=== PATIENT | male | born 1990 | race Hispanic/Latino ===

== ENCOUNTER 2017-03-25 14:14 | Inpatient (IN) | payer OTHER, SELFPAY ==
[2017-03-25] MEDS ORDERED: Dextrose 50% Abboject 50 ML SYRINGE SLOW IVP PRN (15:15)
[2017-03-25] MEDS ORDERED: Dextrose 5% in Water 1,000 ML IV PRN (15:15)
[2017-03-25] MEDS ORDERED: Ondansetron HCl/PF 4 MG/2 ML Vial ONE (15:16)
[2017-03-25] MEDS ORDERED: Adacel (T-DAP) 0.5 ML VIAL ONE (15:16)
[2017-03-25] MEDS ORDERED: Promethazine HCl 25 MG/ML VIAL IM PRN (15:19)
[2017-03-25] MEDS ORDERED: diphenhydrAMINE 50 MG/ML VIAL IM PRN (15:19)
[2017-03-25] MEDS ORDERED: diphenhydrAMINE 50 MG/ML VIAL IVP PRN (15:19)
[2017-03-25] MEDS ORDERED: Naloxone HCl 0.4 mg/ml Vial IV PRN (15:19)
[2017-03-25] MEDS ORDERED: HYDROmorphone 10 mg/100 ml CADD IVPB PRN (15:19)
[2017-03-25] MEDS ORDERED: Ondansetron HCl/PF 4 MG/2 ML Vial IVP PRN (15:19)
[2017-03-25] MEDS ORDERED: diphenhydrAMINE 25 MG CAP PO PRN (15:19)
[2017-03-25] MEDS ORDERED: Communication Order-Pharmacy FS SCH (15:30)
[2017-03-25] MEDS ORDERED: Fentanyl 100 MCG/2 ML VIAL ONE ×2 (15:42→16:54)
[2017-03-25] MEDS ORDERED: Vecuronium 10 MG VIAL ONE (16:05)
[2017-03-25] MEDS ORDERED: Propofol 200 MG/20 ML VIAL ONE (16:05)
[2017-03-25] MEDS ORDERED: Calcium Chloride 1 GM/10 ML Abboject SYRINGE ONE (16:05)
[2017-03-25] MEDS ORDERED: PHENYLEPHRINE-NS 100 MCG/ML 10 ML SYRINGE ONE (16:05)
[2017-03-25] MEDS ORDERED: Lidocaine 1% PF 5 ML VIAL ONE (16:05)
[2017-03-25] MEDS ORDERED: Succinylcholine Chloride 20 MG/ML 10 ml SYRINGE FS ONE (16:05)
[2017-03-25 16:07] LABS: Hematocrit 36.2 % (42.0-52.0)
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
--- NOTE | 2017-03-25 16:44 | RAD ---
RETROGRADE URETHROGRAM: Date: 03/25/17 INDICATION: Trauma with pelvic fracture. Blood from penile meatus. FINDINGS: A retrograde urethrogram was performed by injecting water soluble contrast retrograde at the penile m eatus. Penile urethra opacifies and appears unremarkable. There is abnormality at the diaphragmatic urethra with extravasation and contrast tracking retrograde along the penile urethra. Prostatic urethra appears intact. There is diffuse extravasation at the junction of the prostatic urethra and the bladder. IMPRESSION: Evidence of urethral injury involving the membranous urethra and there is injury at the junction of t he prostatic urethra with the bladder. POS: [facility]
[2017-03-25] MEDS ORDERED: CEFAZOLIN/Water 2 GM/20 ML SYRINGE ONE ×2 (16:54→19:08)
[2017-03-25] MEDS ORDERED: Midazolam HCl 2 mg/2 ml Vial ONE ×3 (16:54→23:03)
--- NOTE | 2017-03-25 19:13 | CT ---
CT PELVIS WITHOUT CONTRAST CYSTOGRAM: History: Injury. Comparison: Retrograde urethrogram same day. Technique: Non-intravenous contrast images of the pelvis were performed prior to the contrast install ation of 300 ml retrograde into the bladder via Stuart catheter. Images were obtained after the instal lation of contrast into the bladder. Coronal reformats available for review. FINDINGS: Bones: There is diastasis of the pubic symphysis with vertical off set with the right pubic symphysis higher than the left. There are fractures through the right ileum, the SI joint, with a chip fractur e of the sacrum of S2. Mild widening of the left SI joint. There is a nondisplaced fracture of the le ft acetabulum. There is a large hole at the proximal urethra at the ureterovesicular junction along the anterior and infralateral aspect. There is also a defect of the memerous portion of the urethra Hip joints are in normal alignment. There is contrast extravasation to the intraperitoneal and extraperitoneal cavities as well as in the superficial soft tissues superficial to the rectum muscles and along the bilateral aviation warfare systems operator muscles extending into the adductor musculature. IMPRESSION: 1. Combined right lateral compression type III injury with associated vertical shear of the pelvis. 2. Large defect of the proximal urethra at the urethral sphincter along the anterior and lateral aspe ct from approximately 12 o'clock to 3 o'clock with another associated injury of the memberous urethra with associated intraperitoneal and extraperitoneal urine extravasation. POS: [facility]
--- NOTE | 2017-03-25 19:14 | ULT ---
TESTICULAR ULTRASOUND WITH DOPPLER: History: Evaluate for blood flow to the testicles. Comparison: None. FINDINGS: There is blood flow documented within both testicles. Severe scrotal edema. Right testicle measures 3 .9 x 2.5 x 2.7 cm. Left testicle measure 3.1 x 3.4 x 2.5 cm. IMPRESSION: Positive blood flow to both testicles. POS: [facility]
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
[2017-03-25] MEDS ORDERED: Fentanyl 250 MCG/5 ML VIAL ONE (19:27)
[2017-03-25] MEDS: Sodium Chloride 0.9% 1,000 ML IV SCH ×2 (19:55→23:46)
[2017-03-25] MEDS: Ketorolac Tromethamine 30 MG/ML VIAL IVP SCH ×2 (19:56→23:32)
[2017-03-25] MEDS ORDERED: Rocuronium Bromide 50 MG/5 ML VIAL ONE ×4 (23:03→23:06)
[2017-03-25] MEDS ORDERED: Fentanyl 20 MCG/ML 250 ML ONE (23:43)
[2017-03-25] MEDS ORDERED: Sedation Protocol FS ONE (23:44)
[2017-03-25] MEDS ORDERED: Sedation Protocol FS SCH (23:44)
[2017-03-25] MEDS ORDERED: Fentanyl 20 MCG/ML 250 ML IVPB SCH (23:47)
[2017-03-25] MEDS ORDERED: DISCONTINUE PREVIOUS NARCOTIC PAIN MEDICATIONS AND BENZODIAZEPINES FS SCH (23:47)
[2017-03-25] MEDS ORDERED: Propofol 1,000 MG/100 ML VIAL IV PRN (23:47)
[2017-03-25] MEDS ORDERED: Lorazepam 2 MG/ML VIAL SLOW IVP PRN (23:47)
[2017-03-25] MEDS ORDERED: Morphine 2 mg/2ml in 0.9% NaCl PF SYRINGE IVP PRN (23:48)
[2017-03-26] MEDS ORDERED: CEFAZOLIN/Water 2 GM/20 ML SYRINGE SLOW IVP SCH (00:01)
[2017-03-26 00:06] LABS: Oxyhemoglobin 97.7 % (94.0-97.0); Sodium 137 mmol/L (135-148)
[2017-03-26 00:17] LABS: #Lymphocytes 0.8 thou/uL (1.20-3.40); #Monocytes 0.5 thou/uL (0.11-0.59); #Neutrophils 5.5 thou/uL (1.40-6.50); %Basophils 0.1 % (0.0-1.0); %Eosinophils 0.1 % (0.0-10.0); %Monocytes 7.7 % (0.0-10.0); Hematocrit 27.8 % (42.0-52.0); Mean Platelet Volume 8.1 fL (7.4-10.4); Red Blood Cell (RBC) Count 3.03 mill/uL (4.70-6.10); White Blood Cell (WBC) Count 6.9 thou/uL (4.8-10.8)
[2017-03-26 00:36] LABS: Anion Gap 9 mmol/L (10-20); BUN (Urea Nitrogen) 20 mg/dL (8.9-20.6); Calc. Creatinine Clearance 0 mL/min (70-130); Calcium 7.7 mg/dL (7.8-10.44); Carbon Dioxide 21 mmol/L (22-29); Chloride 109 mmol/L (98-107); Estimated GFR-MDRD 54; Magnesium 1.2 mg/dL (1.6-2.6); Phosphorus 3.9 mg/dL (2.3-4.7)
[2017-03-26 00:42] LABS: Mechanical Tidal Volume 600 ml; Mode SIMV; Pressure Support 10 cmH2O; Vent YES
[2017-03-26 00:53] VITALS: BMI 28.9
[2017-03-26] MEDS ORDERED: Magnesium Sulfate 4 GM in Sodium Chloride 0.9% 250 ML 250 ML IVPB SCH (01:00)
[2017-03-26] MEDS: CEFAZOLIN/Water 2 GM/20 ML SYRINGE SLOW IVP SCH ×3 (01:41→16:52)
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
[2017-03-26 04:21] LABS: #Lymphocytes 1.4 thou/uL (1.20-3.40); #Monocytes 0.7 thou/uL (0.11-0.59); #Neutrophils 4.6 thou/uL (1.40-6.50); %Basophils 0.1 % (0.0-1.0); %Eosinophils 0.1 % (0.0-10.0); %Lymphocytes 20.6 % (21.0-51.0); %Monocytes 10.3 % (0.0-10.0); Hematocrit 25.1 % (42.0-52.0); Mean Platelet Volume 8.5 fL (7.4-10.4); Red Blood Cell (RBC) Count 2.73 mill/uL (4.70-6.10); White Blood Cell (WBC) Count 6.7 thou/uL (4.8-10.8)
[2017-03-26 04:25] LABS: PTT 29.7 SEC (22.9-36.1); Prothrombin Time 16.2 SEC (12.0-14.7)
[2017-03-26 04:33] LABS: Anion Gap 7 mmol/L (10-20); BUN (Urea Nitrogen) 21 mg/dL (8.9-20.6); Calc. Creatinine Clearance 86 mL/min (70-130); Calcium 7.4 mg/dL (7.8-10.44); Carbon Dioxide 23 mmol/L (22-29); Chloride 109 mmol/L (98-107); Estimated GFR-MDRD 55
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
[2017-03-26] MEDS: Ketorolac Tromethamine 30 MG/ML VIAL IVP SCH ×2 (05:45→12:02)
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
--- NOTE | 2017-03-26 07:30 | RAD ---
INTRAOPERATIVE FLUOROSCOPIC IMAGES OF PELVIS: Date: 03/25/17 HISTORY: Internal fixation/pelvic pain. FINDINGS: Six intraoperative fluoroscopic images of the pelvis are obtained. There is a single long screw trans fixing the bilateral sacroiliac joints with an additional screw transfixing the right sacroiliac join t. There is a malleable plate and multiple screws transfixing the pubic bone and each superior pubic ramus. Skin clips overlie the midline, as well as drainage catheter. Stuart catheter is noted in place . IMPRESSION: Internal fixation of fracture of the right sacrum and right sacroiliac joint, as well as realignment and internal fixation of the pubic bones. No hardware complication is seen. POS: [facility]
--- NOTE | 2017-03-26 07:43 | RAD ---
PORTABLE CHEST XRAY: DATE: 03/25/17. HISTORY: Intubated. COMPARISON: None available. FINDINGS: Endotracheal tube is noted in place with tip overlying the T3-4 level above the level of the hernando. Cardiac silhouette and pulmonary vasculature are within normal limits. Lungs are clear. There is a metallic density overlying the right axillary region which could be related to overlying artifact or metallic foreign body. This cannot be further evaluated on this exam. Osseous structures appear int act. IMPRESSION: 1. Endotracheal tube noted in place overlying the T3-4 level and above the level of the hernando. 2. Lungs are clear. 3. Metallic density overlying the right axillary region which could be related to overlying artifact , but metallic foreign body cannot be excluded on this exam. POS: [facility]
[2017-03-26 08:09] LABS: Oxyhemoglobin 97.3 % (94.0-97.0); Sodium 136 mmol/L (135-148)
[2017-03-26 08:13] LABS: Mechanical Tidal Volume 600 ml; Modified Allen's Test NOT DONE; Vent YES
[2017-03-26 08:14] LABS: Mode SIMV/PSV; Pressure Support 10 cmH2O
[2017-03-26] MEDS ORDERED: Sodium Bicarbonate 150 MEQ in Dextrose 5% in Water 1,000 ML IV SCH ×2 (08:15)
[2017-03-26] MEDS ORDERED: Promethazine HCl 25 MG/ML VIAL IM PRN (09:11)
[2017-03-26] MEDS ORDERED: diphenhydrAMINE 25 MG CAP PO PRN (09:11)
[2017-03-26] MEDS ORDERED: diphenhydrAMINE 50 MG/ML VIAL IM PRN (09:11)
[2017-03-26] MEDS ORDERED: diphenhydrAMINE 50 MG/ML VIAL IVP PRN (09:11)
[2017-03-26] MEDS ORDERED: Naloxone HCl 0.4 mg/ml Vial IV PRN (09:11)
[2017-03-26] MEDS ORDERED: Ondansetron HCl/PF 4 MG/2 ML Vial IVP PRN (09:11)
[2017-03-26] MEDS ORDERED: HYDROmorphone 10 mg/100 ml CADD IVPB PRN (09:11)
[2017-03-26] MEDS ORDERED: Communication Order-Pharmacy FS SCH (09:15)
[2017-03-26 10:06] LABS: Hematocrit 23.9 % (42.0-52.0)
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
--- NOTE | 2017-03-26 17:13 | PRG ---
DATE OF SERVICE: 03/26/2017 SUBJECTIVE: Mr. Tracy is sedated and seen on mechanical ventilatory support this morning. He moved all extremities and follows commands with a [place] coma scale of 11t. Urinary output though grossly bloody has been in excess of 30 mL per hour. OBJECTIVE: VITAL SIGNS: Today includes blood pressure 150/75, pulse is 105, respiratory rate is 22. Maximum temperature over the last 24 hours is 100.3 degrees Fahrenheit. Oxygen saturation 100% on FIO2 of 28%. HEENT: Reveals normocephalic and atraumatic. Pupils are equal, round, and reactive to light and accommodation. HEART: Reveals regular rate with mild sinus tachycardia, no murmurs or gallops auscultated. LUNGS: Clear to auscultation bilaterally. Breathing is regular and unlabored. ABDOMEN: Soft with incisional tenderness to palpation. Yves-Mckeon drain returns serosanguineous fluid with smell of urine. GENITOURINARY: Stuart catheter remains in place with gross hematuria present. Scrotum is edematous and tender with even slight manipulation. There is ecchymosis of the scrotum and perineum present. There is no subcutaneous emphysema present. NEUROLOGIC: Reveals no focal deficits present. EXTREMITIES: Reveals 2+ radial and pedal pulses bilaterally. PERTINENT LABORATORY FINDINGS: Includes a CBC with 6700 white blood cells, hemoglobin 8.6, hematocrit is 25.1, platelet count is 138,000. Metabolic profile: Sodium 134, potassium is 4.5, chloride is 109, bicarbonate 23, BUN 21 , creatinine is 1.52 and glucose 161. IMPRESSION: 1. Acute posttraumatic respiratory failure, improving. 2. Status post crush injury to right pelvis, status post open reduction and internal fixation of the pubic symphysis, diastatic fracture as well as right SI screws. 3. Status post laparotomy and drainage of bladder neck urethral injury. 4. Acute blood loss anemia. 5. Acute kidney injury likely secondary to acute tubular necrosis. PLAN: 1. The patient is weaned and extubated accordingly. 2. We will initiate pulmonary toilet. 3. Continue to monitor the patient for hemostasis using serial hemoglobin as end-point. 4. Continue with nonpharmacological VTE prophylaxis until active bleeding has been excluded. There is no need for blood transfusion at this time. Above findings and plan discussed with the patient and his at bedside. They both indicated understanding of information given. Total critical care time is 45 minutes. MTDD
[2017-03-26] MEDS: Sodium Chloride 0.9% 1,000 ML IV SCH (19:56)
[2017-03-27] MEDS: CEFAZOLIN/Water 2 GM/20 ML SYRINGE SLOW IVP SCH ×3 (00:45→15:53)
[2017-03-27 05:48] LABS: Anion Gap 6 mmol/L (10-20); BUN (Urea Nitrogen) 17 mg/dL (8.9-20.6); Calc. Creatinine Clearance 116 mL/min (70-130); Calcium 7.4 mg/dL (7.8-10.44); Carbon Dioxide 28 mmol/L (22-29); Chloride 105 mmol/L (98-107); Estimated GFR-MDRD 78; Magnesium 2.4 mg/dL (1.6-2.6); Phosphorus 1.9 mg/dL (2.3-4.7)
[2017-03-27 06:05] LABS: Band 3 % (5-11); Hematocrit 20.1 % (42.0-52.0); Mean Platelet Volume 9.2 fL (7.4-10.4); Neutrophil 66 % (42-75); Red Blood Cell (RBC) Count 2.16 mill/uL (4.70-6.10); White Blood Cell (WBC) Count 5.2 thou/uL (4.8-10.8)
[2017-03-27] MEDS ORDERED: Potassium Phosphate 30 MMOL in Sodium Chloride 0.9% 500 ML IVPB SCH (07:30)
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
[2017-03-27] MEDS ORDERED: Enoxaparin Sodium 30 MG/0.3 ML SYRINGE SC SCH (21:00)
[2017-03-27] MEDS ORDERED: CEFAZOLIN 1 GM in Syringe 10 ML IVPB SCH (23:59)
[2017-03-28] MEDS: CEFAZOLIN/Water 2 GM/20 ML SYRINGE SLOW IVP SCH (00:20)
[2017-03-28 05:53] LABS: #Lymphocytes 1.3 thou/uL (1.20-3.40); #Monocytes 0.5 thou/uL (0.11-0.59); #Neutrophils 4.1 thou/uL (1.40-6.50); %Basophils 0.2 % (0.0-1.0); %Eosinophils 0.4 % (0.0-10.0); %Lymphocytes 21.6 % (21.0-51.0); %Monocytes 8.5 % (0.0-10.0); Hematocrit 23.1 % (42.0-52.0); Mean Platelet Volume 8.6 fL (7.4-10.4); White Blood Cell (WBC) Count 5.9 thou/uL (4.8-10.8)
[2017-03-28 06:11] LABS: Anion Gap 8 mmol/L (10-20); BUN (Urea Nitrogen) 10 mg/dL (8.9-20.6); Calc. Creatinine Clearance 112 mL/min (70-130); Calcium 8.3 mg/dL (7.8-10.44); Carbon Dioxide 26 mmol/L (22-29); Chloride 105 mmol/L (98-107); Estimated GFR-MDRD 75; Phosphorus 2.3 mg/dL (2.3-4.7)
[2017-03-28] MEDS ORDERED: CEFAZOLIN 1 GM in Syringe 10 ML IVPB SCH (07:00)
[2017-03-28] MEDS: Enoxaparin Sodium 30 MG/0.3 ML SYRINGE SC SCH ×2 (09:01→21:34)
[2017-03-28] MEDS: CEFAZOLIN 1 GM in Syringe 10 ML IVPB SCH ×3 (09:01→23:23)
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
[2017-03-28] MEDS: Senokot S 8.6-50 MG TAB PO SCH (21:34)
[2017-03-29] MEDS ORDERED: Bisacodyl 10 MG SUPP PR PRN (08:17)
[2017-03-29] MEDS: CEFAZOLIN 1 GM in Syringe 10 ML IVPB SCH ×2 (09:46→18:21)
[2017-03-29] MEDS: Senokot S 8.6-50 MG TAB PO SCH (09:49)
[2017-03-29] MEDS: Polyethylene Glycol 3350 17 GM Packet PO SCH (09:49)
[2017-03-29] MEDS: Ascorbic Acid 500 mg Chewable Tablet PO SCH (09:50)
[2017-03-29] MEDS: Enoxaparin Sodium 30 MG/0.3 ML SYRINGE SC SCH (09:50)
[2017-03-29] MEDS: Ferrous Sulfate 325 MG TAB PO SCH (09:50)
[2017-03-29] MEDS ORDERED: Bupivacaine PF 0.5% 30 ML VIAL ONE (12:31)
[2017-03-29] MEDS ORDERED: Fentanyl 100 MCG/2 ML VIAL ONE (13:24)
[2017-03-29] MEDS ORDERED: Midazolam HCl 2 mg/2 ml Vial ONE (13:25)
[2017-03-29 13:47] LABS: Oxyhemoglobin 97.6 % (94.0-97.0); Sodium 138 mmol/L (135-148)
[2017-03-29 13:48] LABS: Oxyhemoglobin 97.4 % (94.0-97.0); Sodium 137 mmol/L (135-148)
[2017-03-29] MEDS ORDERED: Promethazine HCl 25 MG/ML VIAL IM PRN (14:28)
[2017-03-29] MEDS ORDERED: Promethazine HCl 25 MG/ML VIAL SLOW IVP PRN (14:28)
[2017-03-29] MEDS ORDERED: Ondansetron HCl/PF 4 MG/2 ML Vial IVP PRN (14:28)
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
[2017-03-29] MEDS ORDERED: Propofol 200 MG/20 ML VIAL ONE (16:20)
[2017-03-29] MEDS ORDERED: Lidocaine 1% PF 5 ML VIAL ONE (16:20)
[2017-03-29] MEDS ORDERED: Ondansetron HCl/PF 4 MG/2 ML Vial ONE (16:20)
--- NOTE | 2017-03-29 16:36 | RAD ---
THREE INTRAOPERATIVE IMAGES OF THE RIGHT ANKLE: Date: 03-29-17 Comparison: None. History: Trauma. FINDINGS: Three intraoperative images are provided demonstrating a screw and plate fixation of the distal fibul a. IMPRESSION: Intraoperative imaging as above. POS: [facility]
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
[2017-03-29] MEDS ORDERED: Acetaminophen 500 MG TAB PO PRN (17:51)
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
[2017-03-30] MEDS: Polyethylene Glycol 3350 17 GM Packet PO SCH (09:55)
[2017-03-30] MEDS: Enoxaparin Sodium 30 MG/0.3 ML SYRINGE SC SCH ×3 (09:55→21:22)
[2017-03-30] MEDS: Ascorbic Acid 500 mg Chewable Tablet PO SCH ×3 (09:55→21:24)
[2017-03-30] MEDS: Ferrous Sulfate 325 MG TAB PO SCH ×3 (09:55→21:23)
[2017-03-30] MEDS: Senokot S 8.6-50 MG TAB PO SCH ×3 (09:56→21:24)
[2017-03-30] MEDS: CEFAZOLIN 1 GM in Syringe 10 ML IVPB SCH (10:41)
--- NOTE | 2017-03-30 12:17 | PRG-2 ---
DATE OF SERVICE: 03/30/2017. ATTENDING PHYSICIAN: Dr. Preston Brown. SUBJECTIVE: Mr. Tracy is a 26-year-old male status post pelvic fracture. He is postoperative day #1 for ORIF of right distal fibula. He has no complaints this morning. States that his pain is wel l controlled. He is tolerating his diet and having normal bowel function; however, he has had fever, last night T-max was 102.1. The patient has not been using incentive spirometer very often, and he is unable to take very deep breaths and has a very weak cough. OBJECTIVE: VITAL SIGNS: Temperature 99.3, pulse 97, respiratory rate 16, O2 sat 97% on room air, blood pressure 108/63. GENERAL: Well-developed, well-nourished male in no acute distress. HEENT: Normocephalic, atraumatic. CARDIOVASCULAR: Regular rate and rhythm. PULMONARY: Clear to auscultation bilaterally. Normal respiratory effort. ABDOMEN: Soft, nontender, nondistended. EXTREMITIES: Neurovascularly intact. Full range of motion. ASSESSMENT: 1. A 26-year-old man status post crush injury to pelvis. 2. Status post open reduction internal fixation of pelvis. 3. Status post open reduction internal fixation of right distal fibula. 4. Acute blood loss anemia, resolved. 5. Acute kidney injury, resolved. PLAN: Continue p.o. pain medications as well as Lovenox for deep venous thrombosis, prophylaxis. Co ntinue mobilization with physical therapy and occupational therapy. We will continue Stuart until karen ared by Urology. It is anticipated that the patient will go home with Stuart and it will need to be s een outpatient by Urology. Strongly encourage the patient to increase amount of incentive spirometer use and work on strengthening his cough, we think this is likely because of his fever overnight. e patient agreed to this plan. Assessment and plan discussed with Dr. Preston Brown this morning on rounds.
--- NOTE | 2017-03-30 14:44 | PRG ---
DATE OF SERVICE: 03/30/2017 SUBJECTIVE: The patient did well overnight despite having a temperature after return from his surger y for his right lower extremity. He has no specific complaints regarding his perineum or scrotum. OBJECTIVE: VITAL SIGNS: He had temperature of 102, but it has come back down and most recently has been 99.8, h is blood pressure has been stable, heart rate in the 90s and he is satting 99% on room air. He does sound a bit congested. ABDOMEN: Soft, nondistended, appropriately tender. The dressing was removed and the incision is karen an, dry, and intact with regla. Dressing was changed around the IRVING drain, which was old encrusted, but the skin itself was normal and without concern for infection. The IRVING drain was placed back to s [facility] [place] from gravity and the Stuart catheter was cleaned from some of the crusted blood and draining ye llow urine with output of 4300 in the last 24 hours and only 15 from the Yves-Mckeon. : His scrotum is less swollen than before, but partially compressed by his legs, so I elevated thi s with a washcloth. ASSESSMENT: A 26-year-old male status post pelvic crush injury with significant urethral injury. Hi s drain has minimal output now, but I would keep it in 1 more day on suction given the recent tempera ture spike and keep the Stuart catheter to gravity.
--- NOTE | 2017-03-30 15:46 | RAD ---
PORTABLE CHEST 1 VIEW: Date: 03/30/17 Time: 1440 hours HISTORY: Fever, concern for pneumonia. FINDINGS: Comparison made with exam of 03/25/17. There has been interval removal of the endotracheal tube. The heart size is normal. There are mild pa tchy infiltrates in the right mid lung. No pneumothoraces or pleural effusions are seen. IMPRESSION: Findings suspicious for pneumonia. POS: [facility]
[2017-03-30] MEDS: cefTRIAXone\\ROCEPHIN 2 GM in Sodium Chloride 0.9% 100 ML IVPB SCH (18:00)
[2017-03-30] MEDS: traMADol HCl 50 MG TAB PO PRN (21:21)
[2017-03-31 05:37] LABS: #Eosinphils 0.1 thou/uL (0.0-0.7); #Lymphocytes 1.2 thou/uL (1.20-3.40); #Monocytes 0.8 thou/uL (0.11-0.59); #Neutrophils 5.6 thou/uL (1.40-6.50); %Basophils 0.4 % (0.0-1.0); %Eosinophils 1.1 % (0.0-10.0); %Lymphocytes 15.7 % (21.0-51.0); %Monocytes 9.9 % (0.0-10.0); Hematocrit 25.5 % (42.0-52.0); Red Blood Cell (RBC) Count 2.75 mill/uL (4.70-6.10); White Blood Cell (WBC) Count 7.7 thou/uL (4.8-10.8)
[2017-03-31 05:42] LABS: Anion Gap 9 mmol/L (10-20); BUN (Urea Nitrogen) 16 mg/dL (8.9-20.6); Calc. Creatinine Clearance 130 mL/min (70-130); Calcium 8.8 mg/dL (7.8-10.44); Carbon Dioxide 27 mmol/L (22-29); Chloride 102 mmol/L (98-107); Estimated GFR-MDRD 89; Magnesium 2.1 mg/dL (1.6-2.6); Phosphorus 3.4 mg/dL (2.3-4.7)
[2017-03-31 06:42] LABS: Mode OR ABG; Vent YES
[2017-03-31 06:42] LABS: Mode OR ABG; Vent YES
[2017-03-31] MEDS: Polyethylene Glycol 3350 17 GM Packet PO SCH (08:33)
[2017-03-31] MEDS: Senokot S 8.6-50 MG TAB PO SCH ×2 (08:33→20:45)
[2017-03-31] MEDS: Ferrous Sulfate 325 MG TAB PO SCH ×2 (08:33→20:45)
[2017-03-31] MEDS: Ascorbic Acid 500 mg Chewable Tablet PO SCH ×2 (08:33→20:45)
[2017-03-31] MEDS: Enoxaparin Sodium 30 MG/0.3 ML SYRINGE SC SCH ×2 (08:33→20:46)
--- NOTE | 2017-03-31 10:16 | PRG-2 ---
DATE OF SERVICE: 03/31/2017 ATTENDING: Trauma surgeon, Dr. Ivan Brown. SUBJECTIVE: Mr. Ramez Tracy is a 26-year-old man status post pelvic fracture on hospital day #6. He is postoperative day #2 for ORIF of right distal fibula. He has no complaints this morning, stat es that he is breathing much better and states his pain is well controlled. He has continued to tole rate his normal diet and have normal bowel function. Chest x-ray was performed yesterday and showed a possible pneumonia, which would be consistent with his lung exam yesterday and the temperature that he had. The patient was started on Rocephin yesterday and encouraged strongly to work on incentive spirometry yesterday, which he did. OBJECTIVE: VITAL SIGNS: Temperature 100.2, pulse 97, respiratory rate 16, O2 sat 97% on room air, blood pressur e 128/75. GENERAL: Well-developed, well-nourished man, in no acute distress. HEENT: Normocephalic, atraumatic. CARDIOVASCULAR: Regular rate and rhythm, no murmurs. PULMONARY: Some rhonchi heard on the right, otherwise clear. Normal respiratory effort. ABDOMEN: Soft, nontender, nondistended. EXTREMITIES: Neurovascularly intact. ASSESSMENT: A 26-year-old man status post crush injury to pelvis. 1. Status post open reduction internal fixation of pelvis. 2. Status post open reduction internal fixation of the right distal fibula. 3. Acute blood loss anemia, resolved. 4. Acute kidney injury, resolved. PLAN: We will continue Rocephin for presumed pneumonia. We will continue Lovenox for deep venous th rombosis prophylaxis. Continue incentive spirometry today. The patient has shown much improvement s ivonne yesterday's performance on incentive spirometry. We will start a q.8 hour breathing treatments today and encouraged the patient to continue working with PT and OT. Assessment and plan was discussed with attending, trauma surgeon, Dr. Preston Brown this morning on r ounds.
[2017-03-31] MEDS: cefTRIAXone\\ROCEPHIN 2 GM in Sodium Chloride 0.9% 100 ML IVPB SCH (16:24)
[2017-03-31] MEDS: traMADol HCl 50 MG TAB PO PRN (20:50)
[2017-04-01] MEDS: Ascorbic Acid 500 mg Chewable Tablet PO SCH ×2 (09:21→20:56)
[2017-04-01] MEDS: Ferrous Sulfate 325 MG TAB PO SCH ×2 (09:22→20:56)
[2017-04-01] MEDS: Enoxaparin Sodium 30 MG/0.3 ML SYRINGE SC SCH ×2 (09:22→20:57)
[2017-04-01] MEDS: Bisacodyl 10 MG SUPP PR SCH (09:22)
[2017-04-01] MEDS: Senokot S 8.6-50 MG TAB PO SCH ×2 (09:23→20:57)
[2017-04-01] MEDS: Polyethylene Glycol 3350 17 GM Packet PO SCH (09:23)
--- NOTE | 2017-04-01 11:12 | PRG-2 ---
DATE OF SERVICE: 04/01/2017 ATTENDING PHYSICIAN: Dr. Preston Brown. SUBJECTIVE: Mr. Ramez Tracy is a 26-year-old man status post pelvic fracture who is on hospital d ay #7. He is postoperative day #3 for ORIF of right distal fibula. He has no complaints this mornin g. He states his pain is well controlled and that he has continued to breathe well. He is toleratin g his normal diet and having normal bowel function. He got up to work with PT yesterday. He did not have any pain, but he did get a little dizzy. He has continued to work on incentive spirometry. OBJECTIVE: VITAL SIGNS: Temperature 98.5, pulse 111, respiratory rate 20, O2 saturation 98% and blood pressure 134/76. GENERAL: A well-developed, well-nourished man in no acute distress. HEENT: Normocephalic and atraumatic. CARDIOVASCULAR: Regular rate and rhythm. No murmurs. PULMONARY: Minimal rhonchi heard on the right lung, otherwise clear. Normal respiratory effort. No distress. ABDOMEN: Soft, nontender and nondistended. EXTREMITIES: Neurovascularly intact. ASSESSMENT: A 26-year-old man; 1. Status post crush injury to the pelvis. 2. Status post open reduction and internal fixation of the pelvis. 3. Status postop open reduction and internal fixation of the right distal fibula. 4. Acute blood loss anemia, resolved. 5. Acute kidney injury, resolved. PLAN: We will switch to p.o. antibiotics today for pneumonia treatment. We will continue DVT prophy laxis with Lovenox. Continue incentive spirometry and continue having the patient work with PT, OT a s the patient will have to be discharged home because he does not have insurance and his case did not qualify for worker's compensation. Assessment and plan discussed with attending, trauma surgeon, Dr. Preston Brown, this morning on [facility] [place].
--- NOTE | 2017-04-01 13:10 | PRG ---
DATE OF SERVICE: 04/01/2017 The patient did well overnight and has no complaints. He is doing better on his incentive spirometer. His vitals have been stable, but his heart rate is back up into the 100s instead of the 90s. T-max 100.8. He has had more than 2.5 liters from the Stuart and it is listed that he had more than 200 from the IRVING drain; however, when I saw him yesterday morning there was approximately 200 more that was actually added onto the prior 24 hours, so in speaking with the patient and looking at the records, it looks like he has really had less than 30 mL from the drain once it was put back to gravity. His scrotum is now of normal size with some residual ecchymosis and appropriate tenderness, but otherwise without concerns. The IRVING drain has serosanguineous fluid of approximately 5 mL in it. His laboratory values reveal a normal white count. It does look like he has been transfused and his H&H did go up. His creatinine is low and normal, ruling out a concern for significant reabsorption of urine. In assessment we have a 26-year-old male status post pelvic crush injury with multiple pelvic fractures, right lower extremity fracture as well as a significant urethral injury with a probable complete membranous disruption status post exploratory laparotomy and drain placement with an indwelling Stuart and a Yves-Mckeon drain. Weighing the pros and cons of leaving the drain with respect to both infection, colonization and infecting his hardware, I opted to put the drain on suction during the exam at bedside today and monitored ; no significant amount of drainage was returned with this. So at this point I cut the suture and removed the Yevs-Mckeon drain in its entirety. The patient tolerated the procedure well. A dressing was put over the wound itself. Any further antibiotics he would need at this time will be ordered and given through the Trauma and Orthopedic Services given his drain is now out. I' ll continue to monitor with the indwelling Stuart. KRISTIN
--- NOTE | 2017-04-01 14:34 | PRG ---
DATE OF SERVICE: 03/31/2017 SUBJECTIVE: The patient did well overnight and I was anticipating removing his drain this morning given the output had been significantly low; however, after putting it back to suction (based on his temperature spike the night before), it put out 95 (from the prior shift of 15) and then another almost 200mL this morning just before my exam. For the 24-hour period, it appeared as though he had closer to 300 or more after putting it back to suction. He still had more than 2 liters out from the Stuart. He reports no concerns or complaints, but it does look like a chest x-ray was consistent with pneumonia. His vitals have been stable. T-max was 100.2 and pulse in the 90s with stable blood pressure. On exam, the incision was clean, dry and intact with regla. The IRVING drain had no concerns at its entrance portion of the skin. There was serosanguineous fluid in the grenade itself. His Stuart was connected and secured. His testes were having still improved swelling and less tender than prior with improving ecchymosis and hyperemia. ASSESSMENT AND PLAN: A 26-year-old male with pelvic crush injury, multiple pelvic fractures and right lower extremity fracture as well as significant urethral injury, most likely complete disruption status post exploratory laparotomy, drain placement and Stuart placement. The drain increased in its output at this time, so I put it back to gravity and will monitor again. We reviewed in detail my concerns and leaving the drain too long, as it can become colonized and/or just be a source for infection--especially given that he has hardware in his pelvis at this time. So I would really like to get it out sooner than later, but if it is draining a significant amount then it is necessary. So for now, we will leave it another day to gravity and monitor its output before determining the next course. KRISTIN
[2017-04-01] MEDS: traMADol HCl 50 MG TAB PO PRN (20:57)
[2017-04-01] MEDS: Zolpidem Tartrate 5 MG TAB PO PRN (23:44)
[2017-04-02] MEDS: Ferrous Sulfate 325 MG TAB PO SCH ×2 (08:52→21:52)
[2017-04-02] MEDS: Docusate 100 MG CAP PO SCH ×2 (08:53→21:51)
[2017-04-02] MEDS: Oxybutynin ER 5 MG TAB PO SCH (08:53)
[2017-04-02] MEDS: Senokot S 8.6-50 MG TAB PO SCH ×2 (08:53→21:52)
[2017-04-02] MEDS: Polyethylene Glycol 3350 17 GM Packet PO SCH ×2 (08:53)
[2017-04-02] MEDS: Ascorbic Acid 500 mg Chewable Tablet PO SCH ×2 (08:53→21:52)
[2017-04-02] MEDS: Enoxaparin Sodium 30 MG/0.3 ML SYRINGE SC SCH ×2 (08:53→21:52)
--- NOTE | 2017-04-02 08:53 | PRG ---
DATE OF SERVICE: 04/02/2017 Yesterday I removed the drain and the patient has done well. He did have some emesis and that was related to taking some medication to help his bowels, but he reports that he is feeling significantly better now. He did have a bowel movement, including diarrhea. He otherwise had a restless night with pain, generalized and not in one specific area, but medication and the sleeping pill helped him to feel significantly better. Currently, he has no significant pain. PHYSICAL EXAMINATION: VITAL SIGNS: T-max 99.8, heart rate still around 100, blood pressure is stable. He has had 2000 from the Stuart. The drain site has a dry dressing and the Stuart is draining yellow urine. ASSESSMENT AND PLAN: 26 year male status post pelvic crush injury with multiple orthopedic injuries and a severe urethral trauma status post exploratory laparotomy and drain placement with the drain now out and the Stuart draining without difficulty. Antibiotics for his pneumonia per the Trauma Team and at this time no further antibiotics needed from me; however, once he is off antibiotics altogether I may prescribe a prophylactic antibiotic until the catheter comes out and will anticipate changing it at 4 weeks and getting a cystogram and RUG at 6 weeks. These can be arranged as an outpatient. I also started him on oxybutynin to help with bladder spasms, and hopefully decrease any leakage from his injury. I emphasized the need to ensure stool softeners and fiber and not get constipated. KRISTIN
[2017-04-02] MEDS: Bisacodyl 10 MG SUPP PR SCH (08:57)
--- NOTE | 2017-04-02 17:59 | PRG ---
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 The patien t sustained a pelvis fracture, a urethral injury and a right ankle fracture. The patient has undergo ne repair of these and has an indwelling catheter to treat his urethral injury. The patient is worki ng with physical therapy and doing well, progressing. He has been afebrile. He states his pain is c ontrolled. He was tolerating a diet and his bowel function has returned. OBJECTIVE: VITAL SIGNS: This morning temperature is 99.1, heart rate 120, blood pressure 118/75, respirations 1 8, oxygen saturation 97% on room air. LABORATORY DATA: THERE are no labs or radiographs to review this morning. ASSESSMENT AND PLAN: 1. Status post industrial accident. 2. Pelvis fracture. 3. Ankle fracture. 4. Urethral injury. PLAN: Will be to continue supportive care, physical and occupational therapy, urinary Stuart as direc florentin by Urology and await placement decision. The evaluation examination was done with Dr. Brown this morning during rounds.
[2017-04-02] MEDS: Zolpidem Tartrate 5 MG TAB PO PRN (21:52)
[2017-04-02] MEDS: traMADol HCl 50 MG TAB PO PRN (21:54)
[2017-04-03] MEDS: Docusate 100 MG CAP PO SCH ×2 (07:46→20:58)
[2017-04-03] MEDS: Ferrous Sulfate 325 MG TAB PO SCH ×2 (07:46→20:57)
[2017-04-03] MEDS: Senokot S 8.6-50 MG TAB PO SCH ×2 (07:46→20:58)
[2017-04-03] MEDS: Polyethylene Glycol 3350 17 GM Packet PO SCH (07:46)
[2017-04-03] MEDS: Oxybutynin ER 5 MG TAB PO SCH (07:47)
[2017-04-03] MEDS: Enoxaparin Sodium 30 MG/0.3 ML SYRINGE SC SCH ×2 (07:48→20:57)
[2017-04-03] MEDS: Ascorbic Acid 500 mg Chewable Tablet PO SCH ×2 (07:48→20:57)
[2017-04-03] MEDS: Bisacodyl 10 MG SUPP PR SCH (07:48)
--- NOTE | 2017-04-03 20:20 | PRG ---
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 He has undergone surgical repair or intervention of some type for these injuries. The patient currently has been working with physical and occupational therapy. He has bee n slowly progressing utilizing a walker. The patient has an indwelling catheter that will have to re main for several weeks. This morning, he was drawing up to 3000 on his incentive spirometry. He is tolerating a diet and has no complaints. OBJECTIVE: VITAL SIGNS: Temperature is 98.4, heart rate 111, blood pressure 120/76, respirations 22 and oxygen saturation 97% on room air. GENERAL: The patient is resting comfortably in bed. He is alert and oriented x3. Nando coma scal e is 15. HEENT: Unremarkable. LUNGS: Clear to auscultation with good inspiratory and expiratory effort. ABDOMEN: Soft, flat and nontender. EXTREMITIES: Neurovascularly intact x4. LABORATORY AND IMAGING DATA: There are no radiographs or laboratories to review this morning. ASSESSMENT AND PLAN: 1. Status post industrial accident. 2. Pelvis fracture, status post open reduction and internal fixation of same. 3. Ankle fracture, status post open reduction internal fixation of same. 4. Urethral injury being treated with indwelling catheter. Plan will be to continue supportive care, pain management, physical and occupational therapy and disc harge the patient once he is sufficiently ambulatory.
[2017-04-03] MEDS: Zolpidem Tartrate 5 MG TAB PO PRN (20:57)
[2017-04-04] MEDS: Senokot S 8.6-50 MG TAB PO SCH ×2 (09:04→21:23)
[2017-04-04] MEDS: Ascorbic Acid 500 mg Chewable Tablet PO SCH ×2 (09:04→21:23)
[2017-04-04] MEDS: Docusate 100 MG CAP PO SCH ×2 (09:05→21:23)
[2017-04-04] MEDS: Oxybutynin ER 5 MG TAB PO SCH (09:05)
[2017-04-04] MEDS: Polyethylene Glycol 3350 17 GM Packet PO SCH (09:06)
[2017-04-04] MEDS: Enoxaparin Sodium 30 MG/0.3 ML SYRINGE SC SCH ×2 (09:06→21:24)
[2017-04-04] MEDS: Bisacodyl 10 MG SUPP PR SCH (09:06)
[2017-04-04] MEDS: Ferrous Sulfate 325 MG TAB PO SCH ×2 (09:06→21:23)
[2017-04-04] MEDS: Zolpidem Tartrate 5 MG TAB PO PRN (21:23)
--- NOTE | 2017-04-05 00:20 | PRG ---
DATE OF SERVICE: 04/04/2017 SUBJECTIVE: The patient is status post industrial accident, in which he sustained an ankle fracture and a pelvic fracture, both of which have undergone open reduction internal fixation. He has been pr ogressing with physical and occupational therapy. Due to insurance reasons, the patient is unable to be placed in a rehab facility, so we will continue to work with him here. He has been ambulating an d being able to place himself back in the bed. He still requires maximal assistance to get up out of bed, as soon as he is able to do this independently or with minimal assistance, will be able to disc harge him home. He is currently tolerating a diet and his pain is controlled. PHYSICAL EXAMINATION: VITAL SIGNS: Temperature is 98.3, heart rate 74, blood pressure 128/79, respirations 14, oxygen satu ration 94% on room air. GENERAL: Patient is resting comfortably in bed. He is alert and oriented x3. Nando coma scale is 15. HEENT: Unremarkable. LUNGS: Clear to auscultation with good inspiratory and expiratory effort. Patient is able to hit 30 00 on his IS. HEART: Regular rate and rhythm. ABDOMEN: Soft, flat, nontender. EXTREMITIES: Neurovascularly intact x4. LABORATORY DATA: There are no labs or radiographs to review this morning. ASSESSMENT AND PLAN: 1. Status post industrial accident. 2. Status post open reduction internal fixation of pelvic fracture. 3. Status post open reduction internal fixation of ankle fracture. 4. Urethral injury. Plan will be to continue supportive care and work with physical and occupational therapy. Again, onc e patient is able to independently care for himself, we will be able to discharge him home and we are hoping that this will be tomorrow or the following day at the latest. The patient is in agreement w ith this and definitely appears motivated to be discharged from the hospital.
[2017-04-05] MEDS: Ascorbic Acid 500 mg Chewable Tablet PO SCH (09:54)
[2017-04-05] MEDS: Oxybutynin ER 5 MG TAB PO SCH (09:54)
[2017-04-05] MEDS: traMADol HCl 50 MG TAB PO SCH ×2 (09:55→17:01)
[2017-04-05] MEDS: Ferrous Sulfate 325 MG TAB PO SCH (09:56)
[2017-04-05] MEDS: Polyethylene Glycol 3350 17 GM Packet PO SCH (09:58)
[2017-04-05] MEDS: Bisacodyl 10 MG SUPP PR SCH (09:58)
[2017-04-05] MEDS: Docusate 100 MG CAP PO SCH (09:58)
[2017-04-05] MEDS: Enoxaparin Sodium 30 MG/0.3 ML SYRINGE SC SCH (09:59)
[2017-04-05] MEDS: Senokot S 8.6-50 MG TAB PO SCH (09:59)
--- NOTE | 2017-04-05 14:08 | PRG ---
DATE OF SERVICE: 04/05/2017 SUBJECTIVE: The patient has done well over the weekend. He was concerned about an area of the scrotum. It was more irritable. PHYSICAL EXAMINATION: He has had no significant fevers, tachycardia, came down on occasion, but still is around 100. GENITOURINARY: On exam, the catheter is in good place and I changed the Cath- Secure, so that it was a clean one. His testicles are fine, but the most dependent portion of his scrotum is indurated and mildly tender. There is no fluctuance. No crepitus. There is minimal hyperemia, which is consistent throughout the scrotum. LABORATORY DATA: He has not had any recent new labs. ASSESSMENT AND PLAN: A 26-year-old male status post pelvic crush injury, multiple orthopedic procedures as well as exploratory laparotomy, drain placement and indwelling Stuart catheter, now with some scrotal edema consistent with the dependent nature when lying back and the scrotum being compressed. I have emphasized previously and again today that I would keep something under his scrotum at all times while lying down. This has been communicated to both the patient and the nurses. He is already on Levaquin which if there is concern for infection would be an adequate antibiotic for this area anyway. It looks like this will be stopped in the next 24 hours, so I would add Bactrim if he is discharged today or tomorrow for another 5 days. Once he goes to rehab and completes the Bactrim, I would switch him over to Macrobid 100mg nightly as a prophylaxis while the catheter is indwelling. I will see him in the office for followup at approximately 4 weeks from the injury. I will get urine before the week before that appointment in anticipation of changing the catheter over a wire at that time. We reviewed all of this today and the patient is in agreement and understands. All questions were answered. KRISTIN
--- NOTE | 2017-04-05 14:56 | DIS ---
DATE OF ADMISSION: 03/25/2017 DATE OF DISCHARGE: 04/05/2017 ADMISSION DIAGNOSES: 1. Status post crush injury due to industrial equipment. 2. Right iliac wing fracture. 3. Right sacral fracture with right sacroiliac diastasis. 4. Pubic symphysis diastasis. 5. Probable urethral injury. 6. Acute blood loss anemia. 7. Right distal one-third fibular fracture. CONSULTATIONS: Orthopedics, Dr. Bustos and Urology, Dr. Scott. PROCEDURES: 1. Cystoscopy with urinary catheter placement. 2. Open reduction and internal fixation of right distal fibula fracture. 3. Open reduction and internal fixation of pubic symphysis diastasis. 4. Percutaneous sacroiliac screw placement including S1 body and S2 body. 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 He sustained a significant vertical shear open book type pelvic fracture and distal fibul ar fracture. The patient was initially evaluated briefly at another facility and then emergently bro ught here for evaluation and examination resuscitation at which time in our emergency department, he was found to have the above injuries. During his trauma scans, it was noted that he had his urethral injury at which time Dr. Scott was consulted and she was able to do her procedure immediately follo wed by his pelvic stabilization. The patient tolerated these procedures well, would be moved to the critical care unit for a short stay and would eventually be moved to the surgical floor and once ther e, the patient would eventually undergo his ankle repair which he tolerated this procedure well. Ove r the next several days, the patient worked with physical and occupational therapy and for insurance reasons, the patient was unable to be placed in rehabilitation, but at time of discharge, patient was able to get in and out of bed without assistance and was ambulating with a walker. The patient woul d have his indwelling urinary catheter remained in place until he sees Dr. Scott in followup. The p atient was provided with a leg bag and education on care of the same. The patient will follow up jeri Bustos in 14 days or sooner as needed. The patient may also follow up with the trauma clini c as needed.
[2017-04-05 16:29] VITALS: BP 123/69; TEMP 98.8
--- NOTE | 2017-04-06 11:43 | PQF ---
RONQUILLOMARCIA FrancoNIKOSJENNI [id number] CLINICAL DOCUMENTATION CLARIFICATION FORM: POST DISCHARGE Addendum to original discharge summary date: ____ Late entry note date: __ DATE: 04/06/2017 ATTN: DR. CAMPBELL Please exercise your independent, professional judgment in responding to the clarification form. Clinical indicators are provided on the bottom of this form for your review Please check appropriate box(s): [ ] Aspiration Pneumonia [ ] Aspiration Bronchitis [ ] Empirically treating Gram Negative Pneumonia [ ] Empirically treating Anaerobic Pneumonia [ ] Pneumonia secondary to (specify organism / underlying disease) [ ] Simple Pneumonia (community acquired - nosocomial) [ x ] Bronchopneumonia [ ] Pneumonia of unknown etiology [ ] Other diagnosis [ ] Unable to determine ( ) Mech Vent - Associated In addition, please specify: Present on Admission (POA): [ ] Yes [ ] No [ x ] Unable to determine For continuity of documentation, please document condition throughout progress notes and discharge summary. Thank You. CLINICAL INDICATORS - SIGNS / SYMPTOMS / LABS 03/25 - OP PROCEDURE ORIF, PATIENT ON VENT 03/31 PN - CHEST X-RAY - POSSIBLE PNEUMONIA , TEMPERATURE 99.8 STARTED ON ROCEPHIN, INCENTIVE SPIROMETRY 04/01 PN - ANTIBIOTICS FOR PNEUMONIA, RR 20, O2 SAT 98% RISK FACTORS FRACTURE PELVIS TREATMENTS: Antibiotics O2 therapy (This form is maintained as a part of the permanent medical record) 2014 [employer]. All Rights Reserved Gretta Putnam, MARYLOU, [email or web address]-H [email or web address] [phone] [email or web address]
== END 2017-04-05 17:14 | disposition home or self-care (01) | DRG 957 ==
LOC: ERS 14:14 → CCU 19:24 → SJJU 03-26 19:03
PROVIDERS: ADMIT Surgery; ATTEND Surgery
PROC: 0TQB0ZZ Repair Bladder, Open Approach (ICD-10-PCS; 2017-03-25)
PROC: 0QS204Z Reposition Right Pelvic Bone with Internal Fixation Device, Open Approach (ICD-10-PCS; 2017-03-25)
PROC: 0QH134Z Insertion of Internal Fixation Device into Sacrum, Percutaneous Approach (ICD-10-PCS; 2017-03-25)
PROC: 0T9B70Z Drainage of Bladder with Drainage Device, Via Natural or Artificial Opening (ICD-10-PCS; 2017-03-25)
PROC: 5A1945Z Respiratory Ventilation, 24-96 Consecutive Hours (ICD-10-PCS; 2017-03-25)
PROC: 30233N1 Transfusion of Nonautologous Red Blood Cells into Peripheral Vein, Percutaneous Approach (ICD-10-PCS; 2017-03-27)
PROC: 0QSJ04Z Reposition Right Fibula with Internal Fixation Device, Open Approach (ICD-10-PCS; principal; 2017-03-29)
DX: S38.1XXA Crushing injury of abdomen, lower back, and pelvis, initial encounter (principal); N17.0 Acute kidney failure with tubular necrosis; S37.30XA Unspecified injury of urethra, initial encounter; S32.391A Other fracture of right ilium, initial encounter for closed fracture; J96.00 Acute respiratory failure, unspecified whether with hypoxia or hypercapnia; J18.0 Bronchopneumonia, unspecified organism; D62 Acute posthemorrhagic anemia; S32.9XXA Fracture of unspecified parts of lumbosacral spine and pelvis, initial encounter for closed fracture; S37.29XA Other injury of bladder, initial encounter; S32.82XA Multiple fractures of pelvis without disruption of pelvic ring, initial encounter for closed fracture; S32.10XA Unspecified fracture of sacrum, initial encounter for closed fracture; W31.89XA Contact with other specified machinery, initial encounter; S82.831A Other fracture of upper and lower end of right fibula, initial encounter for closed fracture
CPT/HCPCS: 36415; 36416; 36430; 51610; 71010; 72190; 72192; 74176; 74450; 76001; 76870; 80048; 82805; 83735; 84100; 85007; 85014; 85018; 85025; 85027; 85610; 85730; 86850; 86900; 86901; 90471; 90715; 93976; 94002; 94003; 94760; 94799; 96374; 96375; 96376; C1713; C1769; G0390; G8978-GP-CM; G8979-GP-CI; G8987-GO-CK; G8988-GO-CJ; J0690; J0696; J1170; J1650; J1885; J2001; J2060; J2250; J2405; J2704; J3010; J3475; J7050; J7070; J7620; P9016; Q9968; S0020

== ENCOUNTER 2017-05-13 11:35 | Outpatient (CLI) | payer SELFPAY ==
[2017-05-13 12:27] LABS: Hemoglobin 13.9 g/dL (14.0-18.0); Mean Corpuscular HGB CONC 32.5 g/dL (32.0-36.0); Mean Corpuscular Hemoglobin 27.8 pg (27.0-31.0); Mean Corpuscular Volume 85.6 fl (80.0-94.0); Mean Platelet Volume 8.8 fL (7.4-10.4); Platelet Count 233 thou/uL (130-400); White Blood Cell (WBC) Count 7.8 thou/uL (4.8-10.8)
[2017-05-13 12:46] LABS: Anion Gap 13 mmol/L (10-20); BUN (Urea Nitrogen) 11 mg/dL (8.9-20.6); Calc. Creatinine Clearance 0 mL/min (70-130); Calcium 9.6 mg/dL (7.8-10.44); Carbon Dioxide 26 mmol/L (22-29); Chloride 98 mmol/L (98-107); Estimated GFR-MDRD Greater than 90; Glucose 110 mg/dL (70-105); Potassium 4.2 mmol/L (3.5-5.1); Sodium 133 mmol/L (136-145)
== END 2017-05-13 11:36 | disposition home or self-care (01) ==
LOC: LABBT 11:35
PROVIDERS: ATTEND Urology
DX: Z01.812 Encounter for preprocedural laboratory examination (principal); S37.30XA Unspecified injury of urethra, initial encounter
CPT/HCPCS: 80048; 85027

== ENCOUNTER 2017-05-18 09:48 | Day surgery (SDC) | payer OTHER ==
[2017-05-13 11:40] VITALS: BMI 24.3
[2017-05-18] MEDS ORDERED: cefTRIAXone\\ROCEPHIN 1 GM, Syringe 0.4 ML in Sterile Water 9.6 ML SLOW IVP SCH (11:15)
[2017-05-18] MEDS ORDERED: Iothalamate Meglumine 60% 50 ML VIAL FS ONE ×2 (12:12→12:50)
[2017-05-18] MEDS ORDERED: Midazolam HCl 2 mg/2 ml Vial ONE (12:28)
[2017-05-18] MEDS ORDERED: Fentanyl 100 MCG/2 ML VIAL ONE (12:28)
[2017-05-18] MEDS ORDERED: Ondansetron HCl/PF 4 MG/2 ML Vial ONE (12:42)
[2017-05-18] MEDS ORDERED: Propofol 200 MG/20 ML VIAL ONE (12:42)
--- NOTE | 2017-05-18 15:42 | RAD ---
EXAM: INTRAOPERATIVE RETROGRADE URETHROGRAM 05/18/17 HISTORY: Urethral injury. Possible leak. COMPARISON: None. EXPOSURE: 0.3 minutes. 7.39 mGy. FINDINGS: Intraprocedural fluoroscopy is provided for the urologist, Dr. Scott. There is opacification of the urinary bladder via Stuart catheter. Stuart catheter is subsequently celio emile. Retrograde urethrogram is performed. No obvious urethral injury based on the images provided. IMPRESSION: Fluoroscopy as above. POS: [facility]
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
== END 2017-05-18 15:00 | disposition home or self-care (01) ==
LOC: SDC 09:48
PROVIDERS: ATTEND Urology
PROC: BT1BZZZ Fluoroscopy of Bladder and Urethra (ICD-10-PCS; principal; 2017-05-18)
DX: S37.39XD Other injury of urethra, subsequent encounter (principal); Z79.2 Long term (current) use of antibiotics; Z79.82 Long term (current) use of aspirin; Z79.899 Other long term (current) drug therapy; Z98.890 Other specified postprocedural states
CPT/HCPCS: 74420; A4216; J0696; J2250; J3010; Q9961

== ENCOUNTER 2017-05-22 23:59 | Emergency (ER) | payer SELFPAY ==
[2017-05-23 01:22] LABS: Bilirubin Negative (Negative); Blood, Urine Trace (Negative); Clarity CLOUDY (Clear); Glucose, Urine (Dipstick) Negative (Negative); Leukocyte Moderate (Negative); Nitrite Positive (Negative); Protein, Urine (Dipstick) Trace mg/dL (Neg-Trace); Specific Gravity, Urine 1.018 (1.002-1.036); pH, Urine 5.5 (5.0-9.0)
[2017-05-23 01:28] LABS: Bacteria/HPF None Seen HPF (None Seen); Hyaline Casts/LPF 0-3 HYALINE CAST LPF (0-3 Hyaline); Pathc Cast-AUWi Flag 0.13 (0-2.49); RBC/HPF 0-3 HPF (0-3); Squamous Epithelial None Seen HPF (0-3)
[2017-05-23 02:36] LABS: #Monocytes 0.4 thou/uL (0.11-0.59); #Neutrophils 6.4 thou/uL (1.40-6.50); %Basophils 0.4 % (0.0-1.0); %Eosinophils 0.4 % (0.0-10.0); %Monocytes 5.5 % (0.0-10.0); %Neutrophils 80.7 % (42.0-75.0); Mean Corpuscular HGB CONC 32.9 g/dL (32.0-36.0); Mean Corpuscular Hemoglobin 28.1 pg (27.0-31.0); Mean Corpuscular Volume 85.2 fl (80.0-94.0); Mean Platelet Volume 8.7 fL (7.4-10.4); Platelet Count 191 thou/uL (130-400); RBC Distribution Width 13.2 % (11.5-14.5); Red Blood Cell (RBC) Count 4.64 mill/uL (4.70-6.10); White Blood Cell (WBC) Count 7.9 thou/uL (4.8-10.8)
[2017-05-23 02:59] LABS: Anion Gap 12 mmol/L (10-20); BUN (Urea Nitrogen) 11 mg/dL (8.9-20.6); Calc. Creatinine Clearance 0 mL/min (70-130); Calcium 9.8 mg/dL (7.8-10.44); Carbon Dioxide 26 mmol/L (22-29); Chloride 102 mmol/L (98-107); Estimated GFR-MDRD Greater than 90; Glucose 124 mg/dL (70-105); Potassium 4.1 mmol/L (3.5-5.1); Sodium 136 mmol/L (136-145)
== END 2017-05-23 02:54 | disposition home or self-care (01) ==
LOC: ERS 23:59
DX: N39.0 Urinary tract infection, site not specified (principal); Z79.899 Other long term (current) drug therapy
CPT/HCPCS: 36415; 80048; 81003; 81015; 85025; 87086; 96374; J0696

== ENCOUNTER 2017-06-14 10:52 | Emergency (ER) | payer SELFPAY ==
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
== END 2017-06-14 13:57 | disposition home or self-care (01) ==
LOC: ERS 10:52
DX: S82.401A Unspecified fracture of shaft of right fibula, initial encounter for closed fracture (principal); Z79.899 Other long term (current) drug therapy; W22.8XXA Striking against or struck by other objects, initial encounter; Y92.69 Other specified industrial and construction area as the place of occurrence of the external cause; Y99.0 Civilian activity done for income or pay

== ENCOUNTER 2017-06-25 09:04 | Day surgery (SDC) | payer OTHER ==
[2017-06-24 09:02] VITALS: BMI 24.3
[~2017-06-25 09:04] MED LIST: FLU VACC QS2017-18 36 mo. & older 0.5 ML SYRINGE IM ONE
[2017-06-25] MEDS ORDERED: Midazolam HCl 2 mg/2 ml Vial ONE (10:19)
[2017-06-25] MEDS ORDERED: Sodium Bicarbonate 2.4 MEQ/5 ML ONE (10:19)
[2017-06-25] MEDS ORDERED: Fentanyl 100 MCG/2 ML VIAL ONE (10:54)
[2017-06-25 11:38] VITALS: BP 139/84; TEMP 98
--- NOTE | 2017-06-25 12:43 | CT ---
CT GUIDED SUPRAPUBIC CATHETER PLACEMENT: CONSCIOUS SEDATION: 2 mg Versed IV, 100 mcg Fentanyl IV. HISTORY: Urethral stricture. Urinary retention. FINDINGS: After explaining the procedure and answering all questions, limited CT imaging of the pelvis was perf ormed. Sterile technique, buffered local anesthesia, conscious sedation, CT guidance, and an anterio r suprapubic approach were used to advance a Bard suprapubic catheter into the urinary bladder. Ball oon was inflated with the included sterile water. The catheter was left to drain a large volume of c lear yellow urine. The patient tolerated the procedure well and was returned to the holding area in good condition for further monitoring. IMPRESSION: Technically successful suprapubic catheter placement with good function. POS: [facility]
== END 2017-06-25 12:30 | disposition home or self-care (01) ==
LOC: SPEC 09:04
PROVIDERS: ATTEND Urology
PROC: 0T9 Urinary System, Drainage (ICD-10-PCS; principal; 2017-06-25)
DX: S37.39XD Other injury of urethra, subsequent encounter (principal); N35.9 Urethral stricture, unspecified; R33.9 Retention of urine, unspecified; Z98.890 Other specified postprocedural states
CPT/HCPCS: 51102; 72192; 99152; 99153; C2627; J2250; J3010

== ENCOUNTER 2017-09-19 00:26 | Emergency (ER) | payer SELFPAY ==
[2017-09-19 02:15] LABS: Bilirubin Small (Negative); Blood, Urine Negative (Negative); Clarity TURBID (Clear); Glucose, Urine (Dipstick) 100 mg/dL (Negative); Leukocyte Large (Negative); Nitrite Negative (Negative); Protein, Urine (Dipstick) > or equal to 300 mg/dL (Neg-Trace); Specific Gravity, Urine 1.025 (1.002-1.036); pH, Urine 8.5 (5.0-9.0)
[2017-09-19 02:20] LABS: Pathc Cast-AUWi Flag 24.36 (0-2.49)
[2017-09-19 02:24] LABS: #Basophils 0.1 thou/uL (0.0-0.2); #Eosinphils 0.1 thou/uL (0.0-0.7); #Lymphocytes 1.7 thou/uL (1.20-3.40); #Monocytes 0.5 thou/uL (0.11-0.59); #Neutrophils 8.7 thou/uL (1.40-6.50); %Basophils 0.5 % (0.0-1.0); %Eosinophils 0.5 % (0.0-10.0); %Lymphocytes 15.2 % (21.0-51.0); %Monocytes 4.3 % (0.0-10.0); %Neutrophils 79.5 % (42.0-75.0); Hemoglobin 15.9 g/dL (14.0-18.0); Mean Corpuscular HGB CONC 34.2 g/dL (32.0-36.0); Mean Corpuscular Hemoglobin 28.9 pg (27.0-31.0); Mean Corpuscular Volume 84.5 fl (80.0-94.0); Mean Platelet Volume 9.2 fL (7.4-10.4); Platelet Count 192 thou/uL (130-400); RBC Distribution Width 12.7 % (11.5-14.5); White Blood Cell (WBC) Count 10.9 thou/uL (4.8-10.8)
[2017-09-19 02:26] LABS: Bacteria/HPF 4+ HPF (None Seen); RBC/HPF 0-3 HPF (0-3); Renal Epithelial None Seen HPF (0-3); Squamous Epithelial 0-3 HPF (0-3); Transitional Epithelial NONE SEEN HPF (0-3)
[2017-09-19 02:27] LABS: Yeast-All Forms None Seen HPF (None Seen)
[2017-09-19 02:29] LABS: Hyaline Casts/LPF NONE SEEN LPF (0-3 Hyaline); Other Casts/LPF None Seen LPF (0-3 Hyaline)
[2017-09-19 02:50] LABS: ALT (SGPT) 17 U/L (8-55); AST (SGOT) 30 U/L (5-34); Albumin 4.8 g/dL (3.5-5.0); Alkaline Phosphatase 134 U/L (40-150); Anion Gap 15 mmol/L (10-20); BUN (Urea Nitrogen) 22 mg/dL (8.9-20.6); Bilirubin, Total 0.5 mg/dL (0.2-1.2); Calc. Creatinine Clearance 0 mL/min (70-130); Calcium 9.8 mg/dL (7.8-10.44); Carbon Dioxide 22 mmol/L (22-29); Chloride 105 mmol/L (98-107); Estimated GFR-MDRD 63; Globulin 3.9 g/dL (2.4-3.5); Glucose 120 mg/dL (70-105); Potassium 3.5 mmol/L (3.5-5.1); Protein, Total 8.7 g/dL (6.0-8.3); Sodium 138 mmol/L (136-145)
[2017-09-19] MEDS ORDERED: Morphine 4 MG/ML VIAL ONE ×3 (03:22→06:43)
[2017-09-19] MEDS ORDERED: Ondansetron ODT 4 MG TAB ONE (03:23)
[2017-09-19] MEDS ORDERED: Promethazine HCl 25 MG/ML VIAL ONE (04:53)
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
[2017-09-19] MEDS ORDERED: ISOVUE-370 76%-LOCM 1 ML ONE (14:10)
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
== END 2017-09-19 09:11 | disposition home or self-care (01) ==
LOC: ERS 00:26
DX: T83.198A Other mechanical complication of other urinary devices and implants, initial encounter (principal)
CPT/HCPCS: 36415; 74177; 80053; 81003; 81015; 85025; 87077; 87086; 87186; 96374; 96375; 96376; C2627; J2270; J2550; Q0162